=== PATIENT | female | born 1985 | race African-American/Black ===

== ENCOUNTER → 2018-07-07 | Outpatient (CLI) | payer BC ==
--- NOTE | 2018-07-07 17:00 | Diagnostic Imaging Report ---
INDICATION: Nocturia. TECHNIQUE: Multiple real time packer scale sonographic images were obtained of the pelvis transabdominally. CORRELATION STUDY: None FINDINGS: MEASUREMENTS: Uterus: 6.5 x 4.2 x 3.6 cm. Endometrial Thickness: 5 mm. RIGHT OVARY: 2.5 x 3.2 x 2.0 cm LEFT OVARY: 2.4 x 2.2 x 1.5 cm The uterus and endometrium appearing unremarkable. The bilateral ovaries in straight a few small likely physiologic follicles. No definitive concerning mass lesion. Normal blood flow. No significant free pelvic fluid. IMPRESSION: 1. Unremarkable appearing transabdominal pelvic ultrasound examination. Dictated by: Dictated on workstation # [id number]
--- NOTE | 2018-07-08 10:40 | Diagnostic Imaging Report ---
PROCEDURE: US Renal Bilateral. INDICATION: Nocturia. Family history polycystic kidney disease. TECHNIQUE: Multiple real-time grayscale sonographic images were obtained of the kidneys. COMPARISON: None FINDINGS: RIGHT KIDNEY: 9.3 x 3.7 x 4.6 cm. LEFT KIDNEY: 9.1 x 4.6 x 4.2 cm. The kidneys have an unremarkable appearance. There is relatively normal echotexture of the renal parenchyma. No hydronephrosis. URINARY BLADDER: There is presence of bilateral ureteral jets. Urinary bladder appearing unremarkable. Prevoid Volume: 360 mL. Postvoid volume: 140 mL. IMPRESSION: 1. Unremarkable renal sonogram. 2. Nearly 40% residual bladder volume. Dictated by: Dictated on workstation # [id number]
== END ==
LOC: RAD 13:49
DX: R35.1 Nocturia (principal); Z82.71 Family history of polycystic kidney
CPT/HCPCS: 76770; 76856; 76857